=== PATIENT | female | born 1940 | race Two or more races ===

== ENCOUNTER → 2016-11-30 | Outpatient (CLI) | payer MEDICARE, MEDICAID ==
--- NOTE | 2016-11-30 15:11 | RADRPT ---
PROCEDURE: Left knee radiographs. CLINICAL INDICATION: Left knee pain. TECHNIQUE: Four views. Weight bearing. Frontal, lateral, oblique, and patellar view. COMPARISON: No prior studies are available for comparison. FINDINGS: There is no fracture or dislocation. The soft tissues are normal. There are degenerative changes with osteophytes arising from all 3 joint compartment margins. There is medial joint compartment narrowing and subarticular sclerosis. There is no lytic or blastic lesion. There is no radiopaque foreign body. IMPRESSION: 1. 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 2. No acute abnormality. RPTAT: QQ .José Miguel Padilla MD, MD Date Time Electronically viewed and signed by .José Miguel Padilla MD, on 11/30/2016 15:11 .R/
== END | disposition home or self-care (01) ==
LOC: HKI 13:14
PROVIDERS: ATTEND Orthopaedic Surgery
DX: M17.12 Unilateral primary osteoarthritis, left knee (principal); Z79.82 Long term (current) use of aspirin
CPT/HCPCS: 20610; 73564; G0463; J7327

== ENCOUNTER → 2017-02-19 | Outpatient (CLI) | payer MEDICARE, MEDICAID ==
--- NOTE | 2017-02-19 16:02 | RADRPT ---
PROCEDURE: XR right knee. CLINICAL INDICATION: Knee pain TECHNIQUE: AP weightbearing, PA weightbearing, lateral weightbearing and sunrise views are availab le for review. COMPARISON: None available FINDINGS: There is moderate narrowing of the medial tibial femoral compartment. The osseous structures are oth erwise normal in mineralization, architecture and alignment. No fractures are identified. No osseo us lesions are identified. The soft tissues are unremarkable. IMPRESSION: Moderate narrowing of the medial tibial femoral compartment (query osteoarthrosis) RPTAT: HGDB .Quan Stanton MD, MD Date Time Electronically viewed and signed by .Quan Stanton MD, MD on 02/19/2017 16:01 .B/
== END | disposition home or self-care (01) ==
LOC: HKI 13:31
PROVIDERS: ATTEND Orthopaedic Surgery
DX: M25.561 Pain in right knee (principal); M17.11 Unilateral primary osteoarthritis, right knee; S83.231A Complex tear of medial meniscus, current injury, right knee, initial encounter
CPT/HCPCS: 73564; G0463